=== PATIENT | male | born 1975 | race Caucasian/White ===

== ENCOUNTER → 2020-07-17 12:53 | Outpatient (CLI) | payer BC, SELFPAY ==
[2020-07-17 13:17] LABS: COVID19 -Nasal RAPID Negative (Negative)
== END ==
PROVIDERS: Visit Provider Student in an Organized Health Care Education/Training Program
DX: R05 Cough (principal); R09.89 Other specified symptoms and signs involving the circulatory and respiratory systems; R53.83 Other fatigue; Z20.822 Contact with and (suspected) exposure to COVID-19
CPT/HCPCS: 87635